=== PATIENT | male | born 1985 | race Two or more races ===

== ENCOUNTER 2019-11-30 18:55 | Inpatient (IN) | payer OTHER ==
[~2019-11-30] VITALS: Ht 175.3 cm; Wt 78.9 kg
[2019-11-30 19:20] LABS: Basophils # (auto) 0 10 ^3/uL (0-0.2); Basophils % (auto) 0.4 % (0.0-2.0); Eosinophils # (auto) 0 10 ^3/uL (0-0.8); Eosinophils % (auto) 0.2 % (0.0-7.0); Hematocrit 40.4 % (41.0-53.0); Hemoglobin 13.5 g/dL (13.5-17.5); Mean Corpuscular Hemoglobin 29.9 pg (28.0-32.0); Mean Corpuscular Hgb Conc. 33.4 g/dL (32.0-36.0); Mean Corpuscular Volume 89.6 fL (80.0-100.0); Monocytes # (auto) 0.5 10 ^3/uL (0-1.3); Monocytes % (auto) 6.1 % (0.0-12.0); Neutrophils # (auto) 6.7 10 ^3/uL (1.6-8.6); Neutrophils % (auto) 81.3 % (37.0-80.0); Nucleated Red Blood Cells % 0.1 %; Platelet Count (auto) 297 10^3/uL (140-450); Red Blood Cells 4.51 10^6/uL (4.5-5.90); Red Cell Distribution Width 14.3 % (11.8-14.3); White Blood Cell 8.2 10^3/uL (4.4-10.8)
[2019-11-30 19:45] LABS: Anion Gap 9 (5-15); Blood Urea Nitrogen 19 mg/dL (7-18); Calcium 8.9 mg/dL (8.5-10.1); Carbon Dioxide 25 mmol/L (21-32); Chloride 109 mmol/L (98-107); Glucose 102 mg/dL (74-106); Potassium 3.7 mmol/L (3.5-5.1); Sodium 143 mmol/L (136-145)
[2019-11-30 19:52] LABS: Alanine Aminotransferase 30 U/L (16-61); Alkaline Phosphatase 64 U/L (45-117); Aspartate Aminotransferase 24 U/L (15-37); Bilirubin, Total 0.5 mg/dL (0.2-1.0); Blood Alcohol < 3.0 mg/dL (0-5); GFR African American 89 mL/min; GFR Non-African American 74 mL/min; Total Protein 7.6 g/dL (6.4-8.2)
[2019-11-30 22:00] LABS: Urine Bacteria NONE SEEN /hpf (None Seen); Urine Blood Negative /uL (Negative); Urine Hyaline Cast FEW /lpf (0 - 2); Urine Mucus FEW (None Seen); Urine Specific Gravity 1.025 (1.001-1.035); Urine WBC <1 /hpf (0 - 3)
[2019-11-30] MEDS: ALBUTEROL SULF HFA 90MCG INH 200DOSE IN SCH (22:00)
[2019-11-30 22:23] LABS: Amphetamine Screen, Urine NEGATIVE (NEGATIVE); Barbiturate Scree,Urine NEGATIVE (NEGATIVE); Benzodiazephine Screen, Urine NEGATIVE (NEGATIVE); Cannabinoid Screen, Urine NEGATIVE (NEGATIVE); Cocaine Screen, Urine NEGATIVE (NEGATIVE); Opiate Scree,Urine NEGATIVE (NEGATIVE); Phencyclidine Screen, Urine NEGATIVE (NEGATIVE)
[2019-11-30] MEDS ORDERED: MORPHINE SULF INJ 2 MG/ML SYRINGE 1ML IV PRN (22:30)
[2019-11-30] MEDS ORDERED: NITROGLYCERIN 0.4 MG SL TAB SL PRN (22:30)
[2019-11-30 23:00] VITALS: BP 152/89
--- NOTE | 2019-11-30 23:05 | NUR ---
Telemetry admit from ER MARYCRUZ GARNER admitted to Telemetry unit after SBAR received. Patient oriented to Doc Shultz, primary RN, unit, room, bed, and unit policies regarding patient care and visiting hours. Patient now on continuous telemetry monitoring, tele box # [id number] and telemetry reading on arrival to unit is SR 93. Patient has been weighed by bedscale and encouraged to call if they need something. Patient is accompanied by halfway guards. All questions and concerns addressed, patient verbalized understanding.
[2019-11-30] MEDS: HCTZ 25 MG TAB PO SCH (23:44)
[2019-11-30 23:45] VITALS: BP 152/89
[2019-11-30] MEDS: LISINOPRIL 10 MG TAB PO SCH (23:45)
[2019-12-01 04:53] VITALS: BP 143/70
--- NOTE | 2019-12-01 05:12 | NUR ---
IV removed Patient removed his IV stating that the IV was "uncomfortable". Catheter is intact. Will place another IV.
--- NOTE | 2019-12-01 05:20 | NUR ---
IV insertion IV access obtained, via clean sterile technique by inserting 20 gauge catheter at R FA after 1 attempt(s). IV secured properly. No trauma to site. Patient tolerated well.
--- NOTE | 2019-12-01 05:30 | NUR ---
PAGED The patient began to complain of increase body pain. He reports that the severity is currently 8/10. The patient does not have any PRN pain medication. The patient also does not have PRN Ativan. paged for order.
[2019-12-01] MEDS: ALBUTEROL SULF HFA 90MCG INH 200DOSE IN SCH (06:00)
--- NOTE | 2019-12-01 07:45 | NUR ---
Opening Shift Note Assumed care of patient, awake, alert, and oriented. No S/S of distress/SOB or pain. Bed in lowest/locked position, bed rails up x2, call light within reach. Guards at bedside. Instructed on POC and to call for assist PRN. Will continue to monitor for changes Q1hr and PRN.
[2019-12-01 09:00] VITALS: BP 145/83
[2019-12-01] MEDS: LISINOPRIL 10 MG TAB PO SCH (09:21)
[2019-12-01] MEDS: HCTZ 25 MG TAB PO SCH (09:21)
[2019-12-01 12:18] VITALS: BP 145/83
[2019-12-01 13:00] VITALS: BP 143/73
--- NOTE | 2019-12-01 15:24 | NUR ---
Discharge instructions given as ordered. Encourage to follow up with PMD as instructed. All questions and concerns addressed. Patient verbalized understanding. IV removed with catheter intact, pressure dressing applied. Telemetry unit returned to ICU. Patient taken to vehicle via wheelchair with all personal belongings, accompanied by staff and guards. No distress noted at time of departure.
== END 2019-12-01 15:23 | DRG 918 ==
LOC: ER 18:55 → EEVIPCON 18:55 → EDBD 18:55 → TELE 18:56 → TELE-WESTW 23:01
PROVIDERS: ADMIT Internal Medicine; ATTEND Internal Medicine
DX: T65.891A Toxic effect of other specified substances, accidental (unintentional), initial encounter (principal); R06.02 Shortness of breath; R55 Syncope and collapse; I10 Essential (primary) hypertension; J45.909 Unspecified asthma, uncomplicated; Y92.148 Other place in prison as the place of occurrence of the external cause
CPT/HCPCS: 36415; 70450; 71045; 80053; 80307; 80320; 81001; 84484; 85025; G0378